=== PATIENT | male | born 1950 | race Caucasian/White ===

== ENCOUNTER → 2018-10-11 | Outpatient (CLI) | payer BC ==
[2018-07-06 11:00] VITALS: BP 112/70
[~2018-10-11] MED LIST: CHOL10003 PO; ENOX80DI3 SQ; FOLI1TAB16 PO; LEVO50TA PO; METO25TA4 PO; PHEN100C PO; PRAV40TA2 PO; TAMS0.4C97 PO; WARF10TA45 PO
--- NOTE | 2018-10-11 10:46 | RAD ---
Indication: Left lateral breast pain TECHNIQUE: Ultrasound of the limited left breast from 2-4:00 position. COMPARISON: Same day mammogram FINDINGS: The skin is normal in thickness. No suspicious solid or cystic lesion seen in the interrogated left breast corresponding to region of interest. IMPRESSION: No acute sonographic findings in the region of interest. Clinically correlate. BI-RADS 2: Benign findings. Electronically signed by: Norberto Perez DO (10/11/2018 10:43 AM) [facility]
--- NOTE | 2018-10-11 13:10 | RAD ---
DATE: 10/11/2018 EXAM: DIGITAL DIAGNOSTIC BILATERAL HISTORY: Left breast swelling and pain. COMPARISON: None This study was interpreted with the benefit of Computerized Aided Detection (CAD). FINDINGS: Breast Density: FATTY The Breast Parenchyma is primarily fatty replaced. Breast parenchyma level density A.. Skin and nipples are within normal limits. No suspicious ossifications, spiculated mass or area of architectural distortion. Mild left breast cannot mass.. IMPRESSION: No mammographic evidence of malignancy. Clinically correlate. BI-RADS CATEGORY: 2 BENIGN FINDING(S) PQRS compliance statement: Patient information was entered into a reminder system with a target due date for the next mammogram. Mammography is a sensitive method for finding small breast cancers, but it does not detect them all and is not a substitute for careful clinical examination. A negative mammogram does not negate a clinically suspicious finding and should not result in delay in biopsying a clinically suspicious abnormality. "Our facility is accredited by the [employer] Mammography Program."
== END | disposition home or self-care (01) ==
LOC: MAMMO 09:38
PROVIDERS: ATTEND Family Medicine
DX: N63.21 Unspecified lump in the left breast, upper outer quadrant (principal); N63.23 Unspecified lump in the left breast, lower outer quadrant; N64.4 Mastodynia
CPT/HCPCS: 76641; 77066

== ENCOUNTER → 2019-05-21 | Outpatient (CLI) | payer BC, OTHER ==
[2018-07-06 11:00] VITALS: BP 112/70
[~2019-05-21] MED LIST changes: +ALBUTEROL SULFATE 2.5 MG/3 ML NEBU. NEB ONE
--- NOTE | 2019-05-27 12:34 | RESP ---
DATE OF SERVICE: 05/21/2019 The patient's FVC was 2.7, which is 64% predicted, FEV1 1.56, which is 49% predicted. The FEV1/FVC ratio was reduced. There was a 10% improvement in FVC and 6% improvement in FEV1 post-bronchodilator. Lung volume showed a total lung capacity of 185% predicted, residual volume 397% predicted. Diffusion capacity 85% predicted. IMPRESSION: 1. Moderate to severe obstructive airway disease. 2. No significant response to bronchodilators. 3. Lung volumes consistent with air trapping and hyperinflation. 4. Normal diffusion capacity. AINSLEY WORKMAN MD DR: CHASTITY/marilyn JOB#: [id number] / [id number]
== END | disposition home or self-care (01) ==
LOC: PF 09:38
PROVIDERS: ATTEND Nurse Practitioner Family
DX: R06.02 Shortness of breath (principal); Z87.891 Personal history of nicotine dependence
CPT/HCPCS: 94060; 94640; 94729; J7613